=== PATIENT | female | born 1960 | race Hispanic/Latino ===

== ENCOUNTER → 2024-09-02 | Outpatient (REF) | payer MEDICARE | LOC: CARD 08:53 | PROVIDERS: ATTEND Internal Medicine | DX: M79.604 Pain in right leg (principal); I73.9 Peripheral vascular disease, unspecified | CPT/HCPCS: 93925 ==

== ENCOUNTER 2024-11-02 12:03 | Outpatient (RCR) | payer MEDICARE | END 2024-11-04 | LOC: PT 12:03 | PROVIDERS: ATTEND Physician Assistant | DX: M47.816 Spondylosis without myelopathy or radiculopathy, lumbar region (principal) ==